=== PATIENT | female | born 1985 | race Caucasian/White ===

== ENCOUNTER 2017-07-18 09:44 | Inpatient (IN) | payer OTHER ==
[~2017-07-18] VITALS: Ht 165.1 cm; Wt 80.5 kg
[2017-07-18 12:15] VITALS: BP 108/68
[2017-07-18 12:37] LABS: HEMATOCRIT 40.5 % (37.0-47.0); MEAN CELL VOLUME 84.4 fl (81.0-99.0); MEAN CORPUSCULAR HGB 29.2 pg (27.0-31.0); MEAN CORPUSCULAR HGB CONC 34.6 g/dl (33.0-37.0); MEAN PLATELET VOLUME 11.4 fl (9.6-12.3); PLATELET COUNT AUTOMATED 201 10*3/uL (130-400); RED CELL DISTRI WIDTH 13.5 % (0-14.5); WHITE BLOOD COUNT 12.9 10*3/uL (4.8-10.8)
[2017-07-18 12:45] LABS: INTERNATIONAL NORM RATIO 1.1 (2.0-3.5)
[2017-07-18 12:52] LABS: ALBUMIN 3.9 gm/dl (3.1-4.5); ALKALINE PHOSPHATASE 107 U/L (45-117); BUN 17 mg/dl (7-24); CHLORIDE 105 mmol/L (98-107); CREATININE 0.82 mg/dL (0.55-1.02); LIPASE 346 U/L (73-393); POTASSIUM 4.2 mmol/L (3.5-5.1); SGOT/AST 104 IU/L (3-35); SGPT/ALT 354 U/L (12-78); SODIUM 137 mmol/L (136-145); TOTAL PROTEIN 7.9 gm/dL (6.4-8.2)
[2017-07-18 12:53] LABS: ETHYL ALCOHOL < 3.0 mg/dl (<3)
[2017-07-18 12:55] LABS: BETA-HCG, QUANT < 1.0 mIU/mL (1-3)
[2017-07-18 12:57] LABS: ATYPICAL LYMPHS 8 % (0-0); BASOPHILS 1 % (0-1); PLATELET SUFFICIENCY NORMAL (NORMAL); TOTAL CELLS COUNTED 100 #CELLS
[2017-07-18 13:58] LABS: BILIRUBIN NEGATIVE (NEGATIVE); BLOOD NEGATIVE (NEGATIVE); CLARITY CLEAR (CLEAR); COLOR YELLOW (YELLOW); GLUCOSE NEGATIVE (NEGATIVE); KETONE NEGATIVE (NEGATIVE); LEUKO ESTERASE TRACE (NEGATIVE); NITRITE NEGATIVE (NEGATIVE); UROBILINOGEN 0.2 E.U./dl (0.2-1.0)
[2017-07-18] MEDS ORDERED: LAMICTAL100 MG PO (14:00)
[2017-07-18] MEDS ORDERED: NEURONTIN300 MG PO (14:01)
[2017-07-18 14:05] LABS: URINE AMPHETAMINES < 1000 (1000ng/ml); URINE BARBITURATES < 200 (200ng/ml); URINE BENZODIAZEPINES > 200 (200ng/ml); URINE CANNABINOIDS (THC) > 50 (50ng/ml); URINE COCAINE < 300 (300ng/ml); URINE METHADONE < 300 (300ng/ml); URINE OPIATES < 300 (300ng/ml); URINE PHENCYCLIDINE < 25 (25ng/ml)
[2017-07-18] MEDS ORDERED: PROPRANOLOL HCL20 MG PO (14:05)
[2017-07-18] MEDS ORDERED: VISTARIL25 MG PO (14:05)
[2017-07-18 14:14] LABS: BACTERIA 1+; EPITHELIAL CELLS TNTC; RBC 0-2 rbc/hpf (0-2)
[2017-07-18 16:00] VITALS: BP 101/65
[2017-07-18 20:00] VITALS: BP 92/56
[2017-07-19] VITALS: BP 126/70; BP 95/60
[2017-07-19 07:37] LABS: HEMATOCRIT 36.5 % (37.0-47.0); HEMOGLOBIN 12.5 g/dl (12.0-16.0); MEAN CELL VOLUME 86.9 fl (81.0-99.0); MEAN CORPUSCULAR HGB 29.8 pg (27.0-31.0); MEAN CORPUSCULAR HGB CONC 34.2 g/dl (33.0-37.0); MEAN PLATELET VOLUME 11.9 fl (9.6-12.3); PLATELET COUNT AUTOMATED 162 10*3/uL (130-400); RED CELL DISTRI WIDTH 13.8 % (0-14.5); WHITE BLOOD COUNT 8.8 10*3/uL (4.8-10.8)
[2017-07-19 08:00] VITALS: BP 110/58
[2017-07-19 08:21] LABS: ATYPICAL LYMPHS 11 % (0-0); PLATELET SUFFICIENCY NORMAL (NORMAL); TOTAL CELLS COUNTED 100 #CELLS
[2017-07-19 16:00] VITALS: BP 108/67
[2017-07-20] VITALS: BP 101/66
[2017-07-20 08:00] VITALS: BP 99/63
[2017-07-20 08:13] LABS: HEPATITIS B SURFACE AG Negative (Negative)
[2017-07-20 12:00] VITALS: BP 108/53
[2017-07-20 14:50] LABS: HEPATITIS C VIRUS ANTIBODY >11.0 s/co (0.0-0.9)
[2017-07-20 16:00] VITALS: BP 115/63
[2017-07-20 20:00] VITALS: BP 104/60
[2017-07-21 07:16] LABS: BASO # 0.1 10*3/uL (0.0-0.1); BASO % 0.9 % (0.0-1.0); EOS # 0.4 10*3/uL (0.0-0.4); EOS % 5.7 % (1.0-4.0); HEMATOCRIT 34.8 % (37.0-47.0); HEMOGLOBIN 11.9 g/dl (12.0-16.0); LYMPH % 59.6 % (27.0-41.0); MEAN CELL VOLUME 86.4 fl (81.0-99.0); MEAN CORPUSCULAR HGB 29.5 pg (27.0-31.0); MEAN CORPUSCULAR HGB CONC 34.2 g/dl (33.0-37.0); MEAN PLATELET VOLUME 11.9 fl (9.6-12.3); MONO # 0.6 10*3/uL (0.1-1.0); MONO % 8.7 % (3.0-9.0); NEUT # 1.6 10*3/uL (2.3-7.9); NEUT % 24.8 % (47.0-73.0); PLATELET COUNT AUTOMATED 151 10*3/uL (130-400); RED BLOOD COUNT 4.03 10*6/uL (4.10-5.10); RED CELL DISTRI WIDTH 13.5 % (0-14.5); WHITE BLOOD COUNT 6.6 10*3/uL (4.8-10.8)
[2017-07-21 07:47] LABS: ALBUMIN 3.2 gm/dl (3.1-4.5); BUN 17 mg/dl (7-24); CHLORIDE 107 mmol/L (98-107); CREATININE 0.81 mg/dL (0.55-1.02); POTASSIUM 4.3 mmol/L (3.5-5.1); SGOT/AST 45 IU/L (3-35); SGPT/ALT 173 U/L (12-78); SODIUM 140 mmol/L (136-145); TOTAL PROTEIN 6.3 gm/dL (6.4-8.2)
[2017-07-21 07:48] LABS: ALKALINE PHOSPHATASE 76 U/L (45-117)
[2017-07-21 08:00] VITALS: BP 97/54
[2017-07-21] MEDS ORDERED: NATURE'S BLEND F1 MG PO (13:09)
[2017-07-21] MEDS ORDERED: ROPINIROLE HYD0.5 MG PO (13:09)
[2017-07-21] MEDS ORDERED: NATURE'S BLEND100 M2 PO (13:09)
[2017-07-21] MEDS ORDERED: ZOFRAN4 MG PO (13:09)
== END 2017-07-21 13:39 | disposition home or self-care (01) | DRG 897 ==
LOC: 5E 09:44
PROVIDERS: Emergency Medicine; Internal Medicine
DX: F11.23 Opioid dependence with withdrawal (principal); B02.9 Zoster without complications; F12.10 Cannabis abuse, uncomplicated; F13.10 Sedative, hypnotic or anxiolytic abuse, uncomplicated; F14.10 Cocaine abuse, uncomplicated; F41.1 Generalized anxiety disorder; D72.825 Bandemia; R74.0 Nonspecific elevation of levels of transaminase and lactic acid dehydrogenase [LDH]; M79.1 Myalgia; B19.20 Unspecified viral hepatitis C without hepatic coma; F31.9 Bipolar disorder, unspecified; I10 Essential (primary) hypertension; Z82.49 Family history of ischemic heart disease and other diseases of the circulatory system; Z83.3 Family history of diabetes mellitus; Z84.89 Family history of other specified conditions; Z88.0 Allergy status to penicillin; Z79.899 Other long term (current) drug therapy; Z72.0 Tobacco use